=== PATIENT | female | born 1975 | race Two or more races ===

== ENCOUNTER 2016-05-05 17:05 | Emergency (ER) | payer MEDICAID ==
[~2016-05-05] VITALS: Ht 152.4 cm; Wt 70.8 kg
[2016-05-05 17:34] VITALS: BP 131/70
[2016-05-05] MEDS ORDERED: MORPHINE SULF INJ 2 MG/ML SYRINGE 1ML IM ONE (23:30)
[2016-05-05] MEDS ORDERED: ONDANSETRON ODT 4 MG TAB PO ONE (23:30)
== END 2016-05-05 23:37 | disposition home or self-care (01) ==
LOC: ER 17:06
DX: R51 Headache (principal)
CPT/HCPCS: 70450; 82962; 96372; 99284; J2270; Q0162